=== PATIENT | female | born 1990 | race Caucasian/White ===

== ENCOUNTER → 2020-10-10 | Outpatient (CLI) | payer OTHER ==
--- NOTE | 2020-10-10 13:21 | REP ---
INDICATION: DATING/Z32.01 - STAT COMPARISON: None. TECHNIQUE: Transabdominal 1st trimester obstetrical ultrasound with color Doppler evaluation. FINDINGS: Single live early intrauterine is appreciated. Gestational sac with yolk sac and pole identified. [place]-rump length of 2.6 cm corresponds to 9 weeks 3 days gestational age with estimated date of delivery 05/12/2021. heart rate equals 176 beats per minute. No gross abnormalities are identified. IMPRESSION: Single live early intrauterine at 9 weeks 3 days gestational age. Complete anatomical assessment should be performed and 19-20 weeks. <Electronically signed by Amish Cuellar > 10/10/20 [id number]
== END ==
LOC: M WHC 12:52
PROVIDERS: ATTEND Nurse Practitioner Family
DX: Z32.01 Encounter for pregnancy test, result positive (principal)